=== PATIENT | female | born 1950 | race Caucasian/White ===

== ENCOUNTER → 2018-01-12 | Outpatient (CLI) | payer MEDICARE | LOC: M RAD 07:49 | DX: Z12.2 Encounter for screening for malignant neoplasm of respiratory organs (principal); J44.1 Chronic obstructive pulmonary disease with (acute) exacerbation; I25.10 Atherosclerotic heart disease of native coronary artery without angina pectoris; Z87.891 Personal history of nicotine dependence | CPT/HCPCS: G0297 ==

== ENCOUNTER → 2018-06-23 | Outpatient (CLI) | payer MEDICARE | LOC: M RAD 08:35 | DX: R91.8 Other nonspecific abnormal finding of lung field (principal) | CPT/HCPCS: 71250 ==

== ENCOUNTER → 2019-06-29 | Outpatient (CLI) | payer MEDICARE ==
[~2019-06-29] MED LIST: ALB2.5NEB INH; ANOR1AER INH; ARNU1INH3 INH; ASPI-1 PO; AZIT500T2 PO; CITA20TA6 PO; CLAR1TAB2 PO; FLUT50SP12; MOXI1TAB PO; OCEA0.654; PLAV1TAB2 PO; PRED-351 PO; PROAAER10 INH; SIMV10TA2 PO
--- NOTE | 2019-06-29 10:38 | REP ---
Low-dose lung screening CT of the chest: Comparisons are 01/12/2018 and 06/23/2018. The study is performed without IV contrast. The images are presented at lung windowing only. There is a stable 6 ml lung nodule in the right lower lobe on image 57, unchanged. There is a stable 4 ml right lower lobe lung nodule on image 55, unchanged. There is a stable pleural based 5 mm left lower lobe lung nodule on image 65, unchanged. No new lung nodules are identified. There are no infiltrates or pleural effusions. There is chronic parenchymal scarring in the lower lobes bilaterally, unchanged. There are numerous bulla replacing the lung parenchyma bilaterally, unchanged. Impression: There are three stable lung nodules as described. Category II low-dose lung screening CT. The probability of malignancy is less than 1%. Depending on risk factors consider annual follow-up low-dose lung screening chest CT. Electronically Signed by Rakan Pino MD 06/29/2019 10:29 A
== END ==
LOC: M RAD 09:30
PROVIDERS: ATTEND Internal Medicine Pulmonary Disease
DX: R91.8 Other nonspecific abnormal finding of lung field (principal); Z87.891 Personal history of nicotine dependence

== ENCOUNTER → 2020-02-25 | Outpatient (CLI) | payer MEDICARE ==
[~2020-02-25] MED LIST changes: -AZIT500T2 PO; +AZIT500T5 PO; +ISOVUE-370 76% 100ML VIAL As Ordered ONE; -SIMV10TA2 PO; +SIMV10TA21 PO
--- NOTE | 2020-02-25 10:36 | REP ---
CT CHEST WITH IV CONTRAST: TECHNIQUE: Axial contrast-enhanced images from the thoracic inlet to the upper abdomen using 100 mL Isovue-370 intravenous contrast material with multiplanar reformations. COMPARISON: 06/29/2019 and 06/23/2018. A new focal somewhat ill-defined parenchymal opacity is seen in the right upper lobe. Margins appear somewhat spiculated. It measure 1.5 x 2.5 x 3.1 cm. Linear densities radiate peripherally to the pleura. This may represent an area of inflammatory infiltrate but underlying neoplasm could not be excluded. More inferiorly in the right lung, there are two subpleural nodular opacities in the right lower lobe laterally. These are less than 1 cm in diameter and are stable. Similarly, there is a stable subcentimeter nodule in the left lower lobe in the costophrenic angle. No other new parenchymal findings are seen. There are bilateral emphysematous changes with bibasilar fibroatelectatic changes, which are also stable. No significant mediastinal, hilar, or chest wall lymphadenopathy is seen. There is no pleural or pericardial effusion. The heart is normal in size. Thoracic aorta demonstrates no aneurysm or dissection. There is a small hiatal hernia. There are degenerative change of the spine. New moderate compression deformity is noted at T11 compared to the 06/23/2018 exam. There is mild superior impression at the inferior endplate of T12. There is stable compression deformities of T5 through T9. IMPRESSION: New focal ill-defined somewhat spiculated opacity in the right upper lobe with linear bands of opacity extending peripherally to the pleural surface. I suspect this may represent inflammatory infiltrate. However, an underlying neoplasm could not be excluded. Recommend short-term followup and consider bronchoscopy. Two stable subcentimeter nodules seen in the right lower lobe and one in the left lower lobe. No adenopathy. Multiple compression deformities of the thoracic spine. Electronically Signed by Rakan Duckworth MD 02/25/2020 11:09 A
== END ==
LOC: M RAD 07:43
PROVIDERS: ATTEND Internal Medicine Pulmonary Disease
DX: R91.8 Other nonspecific abnormal finding of lung field (principal)
CPT/HCPCS: 71260; Q9967

== ENCOUNTER → 2020-03-10 | Outpatient (CLI) | payer MEDICARE ==
[~2020-03-10] MED LIST changes: +CLAR10CA3 PO; +ECOT81TA5 PO; +GABA-1171 PO; -ISOVUE-370 76% 100ML VIAL As Ordered ONE; +LOSA25TA14 PO; +TRAM50TA2 PO; +TREL1AER PO
== END ==
LOC: M LABSMTC 11:28
PROVIDERS: ATTEND Anesthesiology
DX: Z01.818 Encounter for other preprocedural examination (principal); Z11.59 Encounter for screening for other viral diseases
CPT/HCPCS: C9803; U0003

== ENCOUNTER 2020-03-13 06:12 | Day surgery (SDC) | payer MEDICARE ==
[~2020-03-13] VITALS: Ht 154.9 cm; Wt 63.5 kg
[~2020-03-13 06:12] MED LIST changes: +LR 1,000 ML IV ONE
[2020-03-13] MEDS ORDERED: LIDOCAINE 2% 100MG/5ML SDV (FOR ANES.) As Ordered ONE (07:12)
[2020-03-13] MEDS ORDERED: ONDANSETRON 4MG/2ML VIAL As Ordered ONE (07:12)
[2020-03-13] MEDS ORDERED: ROCURONIUM BROMIDE 50 MG/5 ML VIAL As Ordered ONE (07:12)
[2020-03-13] MEDS ORDERED: fentaNYL 100 MCG/2 ML INJECTION (J3010) As Ordered ONE (07:12)
[2020-03-13] MEDS ORDERED: MIDAZOLAM INJ 2MG/2ML VIAL (J2250 PER 1MG) As Ordered ONE (07:12)
[2020-03-13] MEDS ORDERED: METOCLOPRAMIDE INJ 10MG/2ML VIAL (J2765 PER 1) As Ordered ONE (07:12)
[2020-03-13] MEDS ORDERED: propofoL 200 MG/20 ML VIAL As Ordered ONE (07:12)
[2020-03-13] MEDS ORDERED: LIDOCAINE 1% SDV 30ML VIAL As Ordered ONE (07:16)
[2020-03-13] MEDS ORDERED: LIDOCAINE VISCOUS 2% SOLN 15ML UDC As Ordered ONE (07:16)
[2020-03-13] MEDS ORDERED: THROMBIN SOLN 20,000 UNITS KIT As Ordered ONE (07:16)
[2020-03-13] MEDS ORDERED: EPINEPHrine 1MG/10ML SYRINGE 1.5IN As Ordered ONE (07:16)
[2020-03-13] MEDS ORDERED: LIDOCAINE 4% TOPICAL SOLN 50 ML BTL As Ordered ONE (07:16)
[2020-03-13] MEDS ORDERED: CETACAINE SPRAY 5GM As Ordered ONE (07:20)
[2020-03-13] MEDS ORDERED: PHENYLephrine HCL 500 MCG/5 ML (100MCG/ML) SYRINGE (J2370) As Ordered ONE (09:14)
[2020-03-13] MEDS ORDERED: SUGAMMADEX SODIUM 500 MG/5 ML VIAL (BRIDION) As Ordered ONE (09:14)
[2020-03-13] MEDS ORDERED: LR 1,000 ML IV SCH (09:45)
[2020-03-13] MEDS ORDERED: METOCLOPRAMIDE INJ 10MG/2ML VIAL (J2765 PER 1) IV PRN (09:45)
[2020-03-13] MEDS ORDERED: KETOROLAC 30 MG/ML 1ML VIAL IV PRN (09:45)
[2020-03-13] MEDS ORDERED: PERCOCET 5MG/325MG TAB PO PRN (09:45)
[2020-03-13] MEDS ORDERED: fentaNYL 100 MCG/2 ML INJECTION (J3010) IV PRN (09:45)
[2020-03-13] MEDS ORDERED: ONDANSETRON 4MG/2ML VIAL IV PRN (09:45)
[2020-03-13] MEDS ORDERED: traMADol 50 MG TAB PO ONE (11:00)
[2020-03-13 11:55] VITALS: BP 134/80
--- NOTE | 2020-03-13 12:24 | REP ---
CHEST, SINGLE VIEW: Single view of the chest is performed status post bronchoscopy. No pneumothorax is seen. Focal ill-defined right upper lobe opacity is again seen, as was present on CT of 02/25/2020. Chronic fibrotic changes are seen in the lung bases bilaterally. Heart is not significantly enlarged. IMPRESSION: No pneumothorax status post bronchoscopy. Electronically Signed by Rakan Duckworth MD 03/13/2020 10:42 P
--- NOTE | 2020-03-16 14:55 | RO ---
DATE OF PROCEDURE: 03/13/2020 PREOPERATIVE DIAGNOSIS: Right upper lobe mass. POSTOPERATIVE DIAGNOSIS: Right upper lobe mass with no endobronchial disease appreciated. PROCEDURE PERFORMED: Fiberoptic bronchoscopy with electromagnetic navigation, transbronchoscopic cytology brushing, washing, multiple biopsies, bronchoalveolar lavage, and endobronchial ultrasound. PHYSICIAN: Jean-Pierre Singh DO STEREOPTIC PROJECTION TOPOGRAPHER: ANESTHESIA: DESCRIPTION OF PROCEDURE: The patient was seen and the procedure explained to the patient as were all possible complications pertaining thereto. Written and informed consent were obtained and placed on the chart. The patient was brought to the operative suite, placed under general anesthetic. When the anesthetic had sufficient time to take effect the bronchoscope was placed in through the endotracheal tube and into the trachea. The gray was sharp. The airways of the right and left lung were examined in a subsegmental fashion for any evidence of tumor, ulcer, necrosis, vessel engorgement, or mucosal irregularity appreciating none. The bronchoscope was positioned at the level of the gray. Brushes were performed for genetic testing. Thereafter, a navigational probe was placed into the bronchoscope and registration performed. Once registration was successful, navigation was performed to the right upper lobe and a brushing was obtained for microbiology. Thereafter, multiple cytology brushes were obtained using fluoroscopic guidance. These were passed to the cytopathologist in the room who confirmed adequate specimens had been retrieved. Thereafter, multiple biopsies were performed. Two pathways were followed as previously mapped. When sufficient biopsy specimens had been obtained, a bronchoalveolar lavage was performed. Saline was instilled into the right main bronchus to staunch bleeding and right airway washing was performed. Thereafter, the bronchoscope was removed and an endobronchial ultrasound scope placed in through the endotracheal tube. The lymph nodes that positioned L and R4 were visualized and noted to be 3 and 4 mm, respectively. The lymph node at station L10 was unable to be visualized. The lymph node at station R10 was visualized and noted be 4 mm. Subsequently, the lymph node at station 7 was visualized and noted to be 4-5 mm. Having assessed the lymph nodes the endobronchial ultrasound scope was removed, airways were lavaged free of any remaining blood or secretions and the patient's anesthesia was reversed. She tolerated procedure well, suffered no apparent complication, and a post-procedural chest x-ray will be performed in the recovery room.
== END 2020-03-13 12:05 | disposition home or self-care (01) ==
LOC: M SDC 06:12
PROVIDERS: ATTEND Internal Medicine Pulmonary Disease
DX: R91.8 Other nonspecific abnormal finding of lung field (principal); J43.1 Panlobular emphysema; I10 Essential (primary) hypertension; I25.10 Atherosclerotic heart disease of native coronary artery without angina pectoris; Z98.61 Coronary angioplasty status; E78.5 Hyperlipidemia, unspecified; K21.9 Gastro-esophageal reflux disease without esophagitis; Z87.891 Personal history of nicotine dependence; Z79.51 Long term (current) use of inhaled steroids; Z79.82 Long term (current) use of aspirin; Z79.899 Other long term (current) drug therapy; F41.9 Anxiety disorder, unspecified; F32.9 Major depressive disorder, single episode, unspecified
CPT/HCPCS: 31623; 31624; 31627; 31628; 31652; 71045; 76000; 87070; 87071; 87102; 87116; 87205; 87206; 88104; 88108; 88305; 88313; J2250; J2370; J2405; J2765; J3010

== ENCOUNTER → 2020-03-31 | Outpatient (CLI) | payer MEDICARE ==
[~2020-03-31] MED LIST changes: -LR 1,000 ML IV ONE
[2020-03-31 12:18] LABS: ALT/SGPT 16 U/L (12-78); BILIRUBIN,TOTAL 0.5 MG/DL (0.2-1.0); BLOOD UREA NITROGEN 13 MG/DL (7-18); CALCIUM LEVEL 9.7 MG/DL (8.8-10.2); CARBON DIOXIDE LEVEL 29 MEQ/L (21-32); CHLORIDE LEVEL 103 MEQ/L (98-107); CREATININE FOR GFR 0.66 MG/DL (0.55-1.30); GLOMERULAR FILTRATION RATE > 60.0 (>45); GLUCOSE, FASTING 89 MG/DL (70-100); SODIUM LEVEL 137 MEQ/L (136-145)
[2020-04-04 13:03] LABS: ALBUMIN 4.48 GM/DL (3.29-5.55); ALPHA-1-GLOBULIN % 4.7 % (2.9-4.9); ALPHA-1-GLOBULINS 0.33 GM/DL (0.17-0.41); ALPHA-2-GLOBULINS 0.74 GM/DL (0.42-0.99); ALPHA-2-GLOBULINS % 10.5 % (7.1-11.8); BETA-1-GLOBULINS 0.43 GM/DL (0.28-0.60); BETA-1-GLOBULINS % 6.2 % (4.7-7.2); BETA-2-GLOBULINS 0.33 GM/DL (0.19-0.55); BETA-2-GLOBULINS % 4.7 % (3.2-6.5); GAMMA GLOBULIN % 9.9 % (11.1-18.8); GAMMA GLOBULINS 0.69 GM/DL (0.65-1.58)
[2020-04-04 14:54] LABS: STABLE ALKPHOS 39 U/L
[2020-04-04 14:55] LABS: % LABILE ALKALINE PHOSPHATASE 47.3 %
[2020-04-04 14:59] LABS: LABILE ALKPHOS 35 U/L
== END ==
LOC: M PLALAB 10:41
PROVIDERS: ATTEND Internal Medicine Endocrinology, Diabetes & Metabolism
DX: M81.0 Age-related osteoporosis without current pathological fracture (principal)

== ENCOUNTER → 2020-03-31 | Outpatient (CLI) | payer MEDICARE ==
--- NOTE | 2020-03-31 13:26 | REPPI ---
CHEST X-RAY: TWO VIEWS. HISTORY: Abnormal lung field finding. Comparison chest x-ray, March 13, 2020 and November 21, 2015. FINDINGS: The lungs are quite hyperinflated with flattening of the hemidiaphragms and an increase in the AP diameter the chest. This is unchanged. There are advanced emphysematous changes in the upper lobes bilaterally, also unchanged. There is an irregular ill-defined opacity in the right suprahilar region which it is felt to be unchanged allowing for differences in projection from the March 13, 2020 prior study. This is a new finding when compared with the chest x-ray from November 21, 2015. The pleural angles are sharp. No new pulmonary infiltrate or nodule is seen. There are wedge compression deformities in the mid thoracic spine, unchanged. IMPRESSION: Hyperinflation. Ill-defined infiltrate-like opacity in the right perihilar region, unchanged from comparison chest x-ray March 13, [address] study February 25, 2020. Emphysematous changes. Electronically Signed by Den Estrada MD 03/31/2020 01:49 P
== END ==
LOC: M PLAIMG 10:43
PROVIDERS: ATTEND Internal Medicine Pulmonary Disease
DX: R91.8 Other nonspecific abnormal finding of lung field (principal)

== ENCOUNTER → 2020-06-30 | Outpatient (CLI) | payer MEDICARE ==
[2020-06-30 14:02] LABS: BLOOD UREA NITROGEN 16 MG/DL (7-18); CREATININE FOR GFR 0.73 MG/DL (0.55-1.30); GLOMERULAR FILTRATION RATE > 60.0 (>45)
== END ==
LOC: M PLALAB 10:52
PROVIDERS: ATTEND Internal Medicine Pulmonary Disease
DX: Z01.812 Encounter for preprocedural laboratory examination (principal)

== ENCOUNTER → 2020-07-11 | Outpatient (CLI) | payer MEDICAID, MEDICARE ==
[~2020-07-11] MED LIST changes: +ISOVUE-370 76% 100ML VIAL As Ordered ONE
--- NOTE | 2020-07-17 12:38 | REP ---
CT CHEST WITH INTRAVENOUS (IV) CONTRAST HISTORY: Other nonspecific abnormal finding of lung field. CT CONTRAST DOSE: 75 mL of intravenous Isovue-370. COMPARISON: Made with prior chest CTs, the most recent of which is from 02/25/2020. The most remote comparison chest CT study is from 01/16/2006. CT FINDINGS: There are marked emphysematous changes throughout the upper lobes bilaterally and to a lesser extent in the lower lobes. There are stable subcentimeter nodules, two in each lower lobe unchanged from comparison CT studies of 06/29/2019 and 02/25/2020. There are linear fibrotic changes in the left upper lobe and a band-like area of linear fibrosis and/or atelectasis is seen in the right upper lobe. The previously noted spiculated opacity seen in the right upper lobe recently on 02/25/2020 is much improved. No new pulmonary nodule is appreciated. No hilar or mediastinal mass or adenopathy is observed. No pleural or pericardial effusion is seen. Adrenal glands are unremarkable and unchanged. Visualized upper abdomen structures are unremarkable. IMPRESSION: Advanced chronic obstructive pulmonary disease (COPD) changes. Improved right upper lobe opacity with some band-like linear fibroatelectatic changes in the right upper lobe when compared with the 02/25/2020 study. Stable bilateral lower lobe subcentimeter nodules. MTDD
== END ==
LOC: M RAD 10:34
PROVIDERS: ATTEND Internal Medicine Pulmonary Disease
DX: R91.8 Other nonspecific abnormal finding of lung field (principal); J44.9 Chronic obstructive pulmonary disease, unspecified
CPT/HCPCS: 71260; Q9967

== ENCOUNTER → 2020-09-27 | Outpatient (CLI) | payer MEDICARE ==
[~2020-09-27] MED LIST changes: -ISOVUE-370 76% 100ML VIAL As Ordered ONE
[2020-09-27 14:14] LABS: CALCIUM LEVEL 10.6 MG/DL (8.8-10.2)
[2020-09-28 09:20] LABS: TOTAL 25(OH) VITAMIN D 18.5 NG/ML (30.0-100.0)
== END ==
LOC: M PLALAB 11:06
PROVIDERS: ATTEND Internal Medicine Endocrinology, Diabetes & Metabolism
DX: M81.0 Age-related osteoporosis without current pathological fracture (principal)

== ENCOUNTER → 2021-01-22 | Outpatient (CLI) | payer MEDICARE ==
[2021-01-22 17:28] LABS: TOTAL 25(OH) VITAMIN D 38.2 NG/ML (30.0-100.0)
== END ==
LOC: M PLALAB 09:17
PROVIDERS: ATTEND Nurse Practitioner Family
DX: M81.0 Age-related osteoporosis without current pathological fracture (principal); E55.9 Vitamin D deficiency, unspecified

== ENCOUNTER → 2021-07-16 | Outpatient (CLI) | payer MEDICARE ==
--- NOTE | 2021-07-16 10:39 | REP ---
INDICATION: HX OF NICOTINE DEPENDENCE. COMPARISON: 07/11/2020 a contrast enhanced standard chest CT TECHNIQUE: Axial noncontrast images from the thoracic inlet to the upper abdomen using low-dose lung screening technique (LDCT). As per the protocol only lung window images were sent to the read station for interpretation. FINDINGS: The lung ford are hyperexpanded status quo. The bilateral lower lobe nodules seen on the prior exam have not changed significantly when the technical differences between the examinations are taken into consideration. No new abnormal nodules, masses, or opacities have developed. IMPRESSION: Stable CT examination of the chest. Findings consistent with lung rads category 2 S low-dose screening CT of the lungs and for which yearly CT screening is recommended as per the revised Fleischner society criteria. <Electronically signed by Berry Saunders > 07/16/21 1334
== END ==
LOC: M RAD 09:56
PROVIDERS: ATTEND Internal Medicine Pulmonary Disease
DX: Z12.2 Encounter for screening for malignant neoplasm of respiratory organs (principal); Z87.891 Personal history of nicotine dependence

== ENCOUNTER → 2021-07-16 | Outpatient (CLI) | payer MEDICARE ==
[2021-07-16 14:27] LABS: CALCIUM LEVEL 10.2 MG/DL (8.8-10.2)
[2021-07-16 14:39] LABS: TOTAL 25(OH) VITAMIN D 11.6 NG/ML (30.0-100.0)
== END ==
LOC: M PLALAB 10:19
PROVIDERS: ATTEND Nurse Practitioner Family
DX: M81.0 Age-related osteoporosis without current pathological fracture (principal); Z79.899 Other long term (current) drug therapy

== ENCOUNTER → 2021-11-02 | Outpatient (CLI) | payer MEDICARE ==
[~2021-11-02] MED LIST changes: +LOSA25TA13 PO; -LOSA25TA14 PO
== END ==
LOC: M PLALAB 09:49
PROVIDERS: ATTEND Internal Medicine Endocrinology, Diabetes & Metabolism
DX: E55.9 Vitamin D deficiency, unspecified (principal)

== ENCOUNTER → 2022-08-21 | Outpatient (CLI) | payer MEDICARE ==
[~2022-08-21] MED LIST changes: +CLOP75TA99 PO; -PLAV1TAB2 PO
== END ==
LOC: M RAD 10:43
PROVIDERS: ATTEND Internal Medicine Pulmonary Disease
DX: R91.8 Other nonspecific abnormal finding of lung field (principal); J47.9 Bronchiectasis, uncomplicated; Z87.891 Personal history of nicotine dependence

== ENCOUNTER → 2023-09-10 | Outpatient (CLI) | payer MEDICARE | LOC: M RAD 10:35 | PROVIDERS: ATTEND Internal Medicine Pulmonary Disease | DX: Z12.2 Encounter for screening for malignant neoplasm of respiratory organs (principal); Z87.891 Personal history of nicotine dependence ==

== ENCOUNTER → 2024-09-28 | Outpatient (CLI) | payer MEDICARE | LOC: M RAD 07:06 | PROVIDERS: ATTEND Internal Medicine Pulmonary Disease | DX: Z12.2 Encounter for screening for malignant neoplasm of respiratory organs (principal); Z87.891 Personal history of nicotine dependence ==